=== PATIENT | female | born 1985 | race African-American/Black ===

== ENCOUNTER 2024-08-14 11:12 | Emergency (ER) | payer OTHER ==
[~2024-08-14] VITALS: Ht 167.6 cm; Wt 97.7 kg
[2024-08-14 11:22] VITALS: TEMP 98
[2024-08-14] MEDS: LIDOCAINE 5% TRANSDERMAL PATCH TD ONE (11:56)
[2024-08-14 12:29] LABS: BASOPHILS % (AUTO) 0.6 % (0.0-2.0); EOSINOPHILS % (AUTO) 1.8 % (1.0-6.0); HEMATOCRIT 33.7 % (36-46); HEMOGLOBIN 11.2 g/dL (12.0-16.0); LYMPHOCYTES # (AUTO) 1.7 K/uL (1.0-4.8); LYMPHOCYTES % (AUTO) 40.3 % (22.0-44.0); MEAN CORPUSCULAR HEMOGLOBIN 26.6 pg (26.0-34.0); MEAN CORPUSCULAR HGB CONC 33.1 G/dL (31.0-37.0); MEAN CORPUSCULAR VOLUME 80 fL (80-100); MONOCYTES # (AUTO) 0.5 K/uL (0.1-1.0); MONOCYTES % (AUTO) 10.9 % (2.0-9.0); NEUTROPHILS # (AUTO) 1.9 K/uL (1.8-7.7); NEUTROPHILS % (AUTO) 46.4 % (40.0-70.0); PLATELET COUNT (AUTO) 311 K/uL (150-450); RED CELL DISTRIBUTION WIDTH 15.2 % (11.5-14.5); WHITE BLOOD COUNT (AUTO) 4.2 K/uL (4.5-11.0)
[2024-08-14 12:44] LABS: ANION GAP 8 mmol/L (8-16); CARBON DIOXIDE 26 mmol/L (22-29); CHLORIDE 104 mmol/L (98-107); CREATININE 0.61 mg/dL (0.60-1.30); GLOMERULAR FILTR. RATE CALC > 60 mL/min (>60); GLUCOSE,RANDOM 104 mg/dL (70-110); POTASSIUM 3.8 mmol/L (3.5-5.1); SODIUM SERUM 138 mmol/L (136-145); UREA NITROGEN, BLOOD 10 mg/dL (7-18)
[2024-08-14 12:55] LABS: TROPONIN I-HIGH SENSITIVITY 5 ng/L (<51)
[2024-08-14 13:25] VITALS: BP 132/75; PULSE 95; RESP 16; O2SAT 100
== END 2024-08-14 13:28 | disposition home or self-care (01) ==
LOC: EMS 11:12
DX: R00.2 Palpitations (principal); M54.2 Cervicalgia
CPT/HCPCS: 80048; 84484; 84703; 85025; 93005; 99284